=== PATIENT | female | born 1930 | race Caucasian/White ===

== ENCOUNTER → 2016-09-28 | Day surgery (SDC) | payer OTHER, MEDICARE ==
[~2016-09-28] VITALS: Ht 152.4 cm; Wt 62.6 kg
[~2016-09-28] MED LIST: ASPIR 8181 M1 PO; ASPIR 8181 MG PO; CALCIUM 500 +1 EAC5 PO; CARVEDILOL12.5 MG PO; CENTRUM SILVER1 EAC4 PO; CLONIDINE0.1 PO; CO Q-10100 MG PO; COREG6.25 MG PO; FISH OIL 1,001000 M2 PO; FOSAMAX 70 MG T70 MG PO; HYDROCODONE-AP1 EAC6 PO; LEVOTHYROXIN0.088 MG PO; MAGNESIUM OXID400 MG PO; NEURONTIN100 MG PO; NITROGLYCERIN0.4 MG SUBLING; NORVASC10 MG PO; NORVASC2.5 MG PO; PRILOSEC20 MG PO; VITAMIN B-6100 MG PO; VITAMIN D 5050000 I1 PO; XANAX XR0.5 MG PO; [UNRECOGNIZED DRUG - OTHER] PO
--- NOTE | ~2016-09-28 | O ---
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 PROCEDURE: Right endoscopic balloon dacryocystorhinostomy with nasal surgical video endoscopy and silicone intubation. SURGEON: Farhan Puente M.D. STRING TOP SEALER: None. ANESTHESIA: General. COMPLICATIONS: None. INDICATIONS FOR SURGERY: This pleasant 86-year-old woman has recurrent right-sided nasolacrimal duct obstruction with chronic dacryocystitis, discharge from the eye. She presents today for an endoscopic balloon dacryocystorhinostomy with silicone intubation. An informed consent was obtained to include but not limited to the potential risk for loss of vision, bleeding, infection, failure to improve the problem, and the potential need for further surgery or treatment. DESCRIPTION OF PROCEDURE: The patient was taken to the operating room where general anesthesia was administered. She received intravenous antibiotics and Decadron at the beginning of the case. The right medial canthus, the right lateral wall of the nose were both anesthetized with Xylocaine with epinephrine, mixed with Marcaine and Wydase. The nose was then packed with Afrin-soaked cottonoids. The patient was subsequently prepped and draped in the usual sterile fashion. The superior and inferior puncta were dilated. Purulent material was emanating from both puncta. A size 4 mm Encarnacion probe was able to be passed into the canaliculi. The cottonoids were removed from the nose, and the nasal vault inspected. The [facility] [address] [place] [address] OPERATIVE REPORT Name: EDMONDHAY Room #: REG [facility].#: [id number] Admission: 09/28/16 Attend Phys: Farhan Puente MD Discharge: Date of : [birth year] Report #: [id number] area of the root of the middle turbinate was then injected with the same anesthetic mixture used at the beginning of the case utilizing the video endoscope. The Encarnacion probe was then passed through the previously made ostium at the lowest point possible in the lacrimal sac area. The ostium was then enlarged with multiple passes and maneuvering of the Encarnacion probe, dynamically with the video endoscope. The middle turbinate was deviated, somewhat medially with the blunt end of her freer periosteal elevator. The new ostium having been created, the Encarnacion probe was removed and a 5 mm x 8 mm lacrimal duct catheter passed through the superior canalicular system down at new ostium. The balloon was then inflated with video endoscopic observation to 9 atmospheres for 90 seconds at each of 3 different locations ensuring that the entire sac was dilated. The balloon was then vigorously aspirated as it was withdrawn. The tract irrigated well with good flow of fluid into the nose. Merrill tubes were then passed through the superior and inferior canaliculi, and they were retrieved in the middle meatus with a Merrill hook and the video endoscope. The tubes were secured to themselves with 3 square throws and subsequently to the lateral wall of the nose with one 5-0 Prolene suture. Maxitrol drops were then placed on the eye, and the patient subsequently transported to the recovery area having tolerated the procedures well with no anesthetic or operative complications being noted. Thank you very much. Supportive dictations follow. By: [id number] Farhan Puente MD /nt
== END | disposition home or self-care (01) ==
LOC: OR 05:16
DX: H04.411 Chronic dacryocystitis of right lacrimal passage (principal); H04.551 Acquired stenosis of right nasolacrimal duct; I10 Essential (primary) hypertension; Z98.41 Cataract extraction status, right eye; Z98.42 Cataract extraction status, left eye; Z85.850 Personal history of malignant neoplasm of thyroid; Z98.890 Other specified postprocedural states
CPT/HCPCS: 50010; 50101; 50386; 50398; 51777; 55343; 56528; 62110; 62900; 64037; 70005